=== PATIENT | male | born 1950 | race Caucasian/White ===

== ENCOUNTER 2025-02-05 07:00 | Outpatient (CLI) | payer OTHER ==
[~2025-02-05] VITALS: Ht 121.9 cm; Wt 5.0 kg
[~2025-02-05 07:00] MED LIST: BENTYL10 MG/ML; ENALAPRIL MALE2.5 MG; INTESTINEX680 MG PO; PEPCID AC20 MG PO; SIMVASTATIN5 MG; TOPROL XL50 M1 PO; TRAM1TAB98 PO
== END 2025-02-05 07:15 | disposition home or self-care (01) ==
LOC: LAB 07:00 → ADM 07:00 → LAB 07:15 → EDSTATUS 12:15 → SURH 12:15
PROVIDERS: ATTEND Surgery
DX: D37.5 Neoplasm of uncertain behavior of rectum (principal); D12.8 Benign neoplasm of rectum; R19.4 Change in bowel habit